=== PATIENT | female | born 1990 ===

== ENCOUNTER 2017-10-19 22:43 | Emergency (ER) | payer SELFPAY ==
[2017-10-19 23:33] VITALS: BP 118/63
== END 2017-10-19 23:30 | disposition left against medical advice (07) ==
LOC: ED 22:43
DX: O26.892 Other specified pregnancy related conditions, second trimester (principal); Z3A.16 16 weeks gestation of pregnancy; Z53.21 Procedure and treatment not carried out due to patient leaving prior to being seen by health care provider